=== PATIENT | female | born 1955 | race Two or more races ===

== ENCOUNTER 2016-12-27 22:37 | Inpatient (IN) | payer SELFPAY ==
[~2016-12-27] VITALS: Ht 152.4 cm; Wt 72.1 kg
[~2016-12-27 22:37] MED LIST: HYDR-2758 PO
[2016-12-27 23:13] LABS: BASO # 0.1 x10^3/uL (0.0-0.2); BASO % 1 % (0-3); EOS % 3 % (0-3); HEMATOCRIT 43.8 % (36.0-47.0); HEMOGLOBIN 14.9 g/dL (12.0-15.5); LYMPH # 3.2 x10^3/uL (1.0-4.8); LYMPH % 42 % (24-48); MEAN CORPUSCULAR HEMOGLOBIN 33 pg (25-35); MEAN CORPUSCULAR HGB CONC 34 g/dL (31-37); MEAN CORPUSCULAR VOLUME 97 fL (79-100); MONO % 8 % (0-9); NEUT % 46 % (31-73); PLATELET COUNT 193 x10^3/uL (140-400); RED BLOOD COUNT 4.54 x10^6/uL (3.50-5.40); WHITE BLOOD COUNT 7.7 x10^3/uL (4.0-11.0)
[2016-12-27 23:22] LABS: CALCIUM 8.8 mg/dL (8.5-10.1); CREATININE 0.7 mg/dL (0.6-1.0); GFR 84.8; POTASSIUM 3.9 mmol/L (3.5-5.1)
[2016-12-27 23:28] LABS: MAGNESIUM 2.2 mg/dL (1.8-2.4); TOTAL BILIRUBIN 0.9 mg/dL (0.2-1.0); TOTAL PROTEIN 8.1 g/dL (6.4-8.2)
[2016-12-27 23:38] LABS: CKMB MASS 1.6 ng/mL (0.0-3.6)
--- NOTE | 2016-12-28 00:08 | PHYS DOC ---
Past Medical History Past Medical History: GERD, High Cholesterol Additional Past Medical Histor: Daughter believes pt takes med for reflux Past Surgical History: Other Additional Past Surgical Histo: Arthroscopy L knee x 2 Alcohol Use: None Drug Use: None Adult General Chief Complaint Chief Complaint: Palpitations HPI HPI Patient is a 61 year old female who presents with sudden onset of palpitations , and chest pressure. At approx 10pm tonight while sitting pt had sudden onset of rapid heart beat with chest pressure. Daughter states pt was trembling from the fast heart beat. Pt states for past 2 days episodes of chest pressure prior to today. Pt states pain is substernal/L sided radiates to L arm and L neck. Associated with SOA and nausea. Chest pressure was 6/10/ Pt states rapid heart beat feeling gone now and the above episode may have lasted approx 7 min Pt speaks french and a little lithuanian. 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 Review of Systems Review of Systems Constitutional: Denies fever or chills [] Eyes: Denies change in visual acuity, redness, or eye pain [] HENT: Denies nasal congestion or sore throat [] Respiratory: Denies cough , yes---short of breath Cardiovascular: No additional information not addressed in HPI [] GI: Denies abdominal pain, nausea, vomiting, bloody stools or diarrhea [] : Denies dysuria or hematuria [] Musculoskeletal: Denies back pain or joint pain [] Integument: Denies rash or skin lesions [] Neurologic: Denies headache, focal weakness or sensory changes [] Current Medications Current Medications Current Medications Medications (Trade) Dose Ordered Sig/Karma Start Time Stop Time Status Last Admin Dose Admin Info (Do NOT chart on this entry -- for MONITORING) 1 each PRN DAILY PRN 12/28/16 00:15 12/28/16 16:20 DC Allergies Allergies Allergies Coded Allergies Type Severity Reaction Last Updated Verified No Known Drug Allergies 02/13/14 No Physical Exam Physical Exam Constitutional: Well developed, well nourished, no acute distress, non-toxic appearance. [] HENT: Normocephalic, atraumatic, bilateral external ears normal, oropharynx moist, no oral exudates, nose normal. [] Eyes: PERRL, EOMI, conjunctiva normal, no discharge. [] Neck: Normal range of motion, no tenderness, supple, no stridor. [] Cardiovascular:Heart rate regular rhythm, no murmur [] Lungs & Thorax: Bilateral breath sounds clear to auscultation [] Abdomen: Bowel sounds normal, soft, no tenderness, no masses, no pulsatile masses. [] Skin: Warm, dry, no erythema, no rash. [] Back: No tenderness, no CVA tenderness. [] Extremities: No tenderness, no cyanosis, no clubbing, ROM intact, no edema. [] Neurologic: Alert and oriented X 3, normal motor function, normal sensory function, no focal deficits noted. [] Psychologic: Affect normal, judgement normal, mood normal. [] Current Patient Data Vital Signs Vital Signs Date Time Temp Pulse Resp B/P (MAP) Pulse Ox O2 Delivery O2 Flow Rate FiO2 12/27/16 22:49 98.3 78 18 105/56 (72) 97 Room Air 98.3 Lab Values Laboratory Tests Test 12/27/16 22:50 White Blood Count 7.7 x10^3/uL (4.0-11.0) Red Blood Count 4.54 x10^6/uL (3.50-5.40) Hemoglobin 14.9 g/dL (12.0-15.5) Hematocrit 43.8 % (36.0-47.0) Mean Corpuscular Volume 97 fL (79-100) Mean Corpuscular Hemoglobin 33 pg (25-35) Mean Corpuscular Hemoglobin Concent 34 g/dL (31-37) Red Cell Distribution Width 13.0 % (11.5-14.5) Platelet Count 193 x10^3/uL (140-400) Neutrophils (%) (Auto) 46 % (31-73) Lymphocytes (%) (Auto) 42 % (24-48) Monocytes (%) (Auto) 8 % (0-9) Eosinophils (%) (Auto) 3 % (0-3) Basophils (%) (Auto) 1 % (0-3) Neutrophils # (Auto) 3.6 x10^3uL (1.8-7.7) Lymphocytes # (Auto) 3.2 x10^3/uL (1.0-4.8) Monocytes # (Auto) 0.6 x10^3/uL (0.0-1.1) Eosinophils # (Auto) 0.3 x10^3/uL (0.0-0.7) Basophils # (Auto) 0.1 x10^3/uL (0.0-0.2) D-Dimer (Nu) 1.30 ug/mlFEU (0.00-0.50) H Sodium Level 141 mmol/L (136-145) Potassium Level 3.9 mmol/L (3.5-5.1) Chloride Level 107 mmol/L (98-107) Carbon Dioxide Level 26 mmol/L (21-32) Anion Gap 8 (6-14) Blood Urea Nitrogen 15 mg/dL (7-20) Creatinine 0.7 mg/dL (0.6-1.0) Estimated GFR (Cockcroft-Gault) 84.8 BUN/Creatinine Ratio 21 (6-20) H Glucose Level 111 mg/dL (70-99) H Calcium Level 8.8 mg/dL (8.5-10.1) Magnesium Level 2.2 mg/dL (1.8-2.4) Total Bilirubin 0.9 mg/dL (0.2-1.0) Aspartate Amino Transferase (AST) 21 U/L (15-37) Alanine Aminotransferase (ALT) 38 U/L (14-59) Alkaline Phosphatase 114 U/L (46-116) Creatine Kinase 150 U/L (26-192) Creatine Kinase MB (Mass) 1.6 ng/mL (0.0-3.6) Creatine Kinase MB Relative Index 1.1 % (0-4) Troponin I Quantitative < 0.017 ng/mL (0.000-0.055) EX-Jwn-[id number]-Type Natriuretic Peptide 54 pg/mL (0-124) Total Protein 8.1 g/dL (6.4-8.2) Albumin 4.0 g/dL (3.4-5.0) Albumin/Globulin Ratio 1.0 (1.0-1.7) Laboratory Tests 12/27/16 22:50 Laboratory Tests 12/27/16 22:50 EKG EKG EKG-- interpreted by ER physician-- Sinus rhythm no STEMI, nonspecific ST T wave changes 2250[] Radiology/Procedures Radiology/Procedures PATIENT: BRIAN SORIA ACCOUNT: [id number] : 1955 LOCATION: [address] [place] [address] AGE: 61 SEX: F EXAM STATUS: ADM IN ORD. PHYSICIAN: REE JIMENEZ MD REASON: chest pain PROCEDURE: CT ANGIOGRAPHY CHEST INDICATION: CHEST PAIN, PALPITATIONS AND ELEVATED D DIMER, [id number], NO PRIORS COMPARISON: None. TECHNIQUE: Axial CT images obtained through the chest. Intravenous contrast utilized. Angiogram 3D images processed per protocol. One or more of the following individualized dose reduction techniques were utilized for this examination: 1. Automated exposure control; 2. Adjustment of the mA and/or kV according to patient size; 3. Use of iterative reconstruction technique. FINDINGS: Mild linear opacities lower lungs. No pneumothorax. Sub-4 mm right upper lung nodule. 5 mm nodule right lung base. Mild groundglass nodular opacity in the right middle lobe. Mildly enlarged right hilar lymph node measuring up to 15 mm short axis. Scattered small lymph nodes in mediastinum. Mild calcific atherosclerosis. The ascending thoracic aorta is obscured by motion but no definite aneurysm. Degenerative changes spine. Enlarged left hilar lymph node. No central pulmonary embolus. Limited peripherally secondary to motion. IMPRESSION: 1. No central pulmonary embolus. 2. There are some enlarged hilar lymph nodes. Could be reactive in nature but may be helpful to obtain a follow-up CT in a few months to ensure no growth to exclude neoplastic causes. 3. In addition there is a couple small pulmonary nodules which can be reevaluated at that time as well. 4. Small region of ground glass nodular opacities within the right middle lobe. Could be secondary to atelectasis but infectious or inflammatory etiology can also have this appearance. This is a very mild finding. Electronically signed by: Pop Mart MD (12/28/2016 12:52 AM) DICTATED and SIGNED BY: POP MART MD DATE: 12/28/16 0020 CC: REE JIMENEZ MD; NO PCP; ELIAZAR FERNÁNDEZ MD ~ [] Impressions: Palpitations Chest Pain Course & Med Decision Making Course & Med Decision Making Pertinent Labs and Imaging studies reviewed. (See chart for details) [] Dragon Disclaimer Dragon Disclaimer This electronic medical record was generated, in whole or in part, using a voice recognition dictation system. Departure Departure Referrals: NO PCP (PCP) REE JIMENEZ MD Dec 28, 2016 00:08
[2016-12-28] MEDS ORDERED: CONTRAST GIVEN MC PRN (00:15)
[2016-12-28] MEDS ORDERED: IOHEXOL 300 MG/ML 75 ML VIAL IV ONE (00:30)
[2016-12-28] MEDS ORDERED: ONDANSETRON PF 4 MG/2 ML VIAL. IV PRN (00:45)
--- NOTE | 2016-12-28 00:55 | RAD ---
INDICATION: CHEST PAIN, PALPITATIONS AND ELEVATED D DIMER, [id number] 75ML, NO PRIORS COMPARISON: None. TECHNIQUE: Axial CT images obtained through the chest. Intravenous contrast utilized. Angiogram 3D images processed per protocol. One or more of the following individualized dose reduction techniques were utilized for this examination: 1. Automated exposure control; 2. Adjustment of the mA and/or kV according to patient size; 3. Use of iterative reconstruction technique. FINDINGS: Mild linear opacities lower lungs. No pneumothorax. Sub-4 mm right upper lung nodule. 5 mm nodule right lung base. Mild groundglass nodular opacity in the right middle lobe. Mildly enlarged right hilar lymph node measuring up to 15 mm short axis. Scattered small lymph nodes in mediastinum. Mild calcific atherosclerosis. The ascending thoracic aorta is obscured by motion but no definite aneurysm. Degenerative changes spine. Enlarged left hilar lymph node. No central pulmonary embolus. Limited peripherally secondary to motion. IMPRESSION: 1. No central pulmonary embolus. 2. There are some enlarged hilar lymph nodes. Could be reactive in nature but may be helpful to obtain a follow-up CT in a few months to ensure no growth to exclude neoplastic causes. 3. In addition there is a couple small pulmonary nodules which can be reevaluated at that time as well. 4. Small region of ground glass nodular opacities within the right middle lobe. Could be secondary to atelectasis but infectious or inflammatory etiology can also have this appearance. This is a very mild finding. Electronically signed by: Chucky Padilla MD (12/28/2016 12:52 AM)
[2016-12-28] MEDS ORDERED: ASPIRIN CHEWABLE 81 MG TABLET. PO ONE (01:15)
[2016-12-28 01:30] VITALS: BP 164/67
[2016-12-28] MEDS ORDERED: OMEG-57 PO (02:35)
[2016-12-28] MEDS ORDERED: ATOR20TA PO (02:35)
[2016-12-28] MEDS ORDERED: RANI150C PO (02:35)
--- NOTE | 2016-12-28 04:32 | ACF ---
Admission Forms Criteria CARDIOLOGY GRG Clinical Indications for Admission to Inpatient Care ( Place 'X' for any and all applicable criteria): Hospital admission is needed for appropriate care of the patient because of ANY ONE of the following (1): [ ] I. Hemodynamic instability as indicated by ALL of the following (1)(2)(3) (4)(5) [ ]a) Vital signs or other findings not as expected for chronic patient condition or baseline [ ]b) Instability indicated by ANY ONE of the following: [ ]i) Hypotension [ ]ii) Symptomatic Tachycardia unresponsive to treatment ( e.g., analgesia, fluids, sedation as indicated) [ ]iii) Inadequate perfusion indicated by ANY ONE of the following: [ ] 1) Lactic acidosis (> 2 mmol/L) [ ] 2) New abnormal capillary refill (> 3 seconds) [ ] 3) Reduced urine output [ ] 4) New altered mental status [ ]iv) Orthostatic vital sign changes unresponsive to treatment (e.g., fluids) [ ]v) IV inotropic or vasopressor medication required to maintain adequate blood pressure or perfusion [ ] II. Severe heart failure as indicated by ANY ONE of the following(17)(18) [ ]a) Respiratory distress [ ]b) Hypotension [ ]c) Anasarca (refractory to outpatient therapy) [ ]d) Cardiac arrhythmias of immediate concern [ ]e) Myocardial ischemia [ ] III. Cardiac arrhythmias or findings of immediate concern indicated by ANY ONE of the following (19)(20): [ ] a) Heart rhythms that are inherently dangerous or unstable indicated by ANY ONE of the following (21)(22)(23): [ ] i) Resuscitated ventricular fibrillation or cardiac arrest [ ] ii) Ventricular escape rhythm [ ] iii) Sustained ventricular tachycardia (30 seconds or more of ventricular rhythm at greater than 100 beats per minute) [ ] iv) Nonsustained ventricular tachycardia and ANY ONE of the following: [ ] 1) Suspected cardiac ischemia as cause or consequence of ventricular tachycardia [ ] 2) In setting of acute myocarditis [ ] b) Unstable cardiac conduction defects indicated by ANY ONE of the following(23)(24)(25) [ ] i) Type II second-degree atrioventricular block [ ]ii) Third-degree atrioventricular block [ ]iii) New-onset left bundle branch block with suspected myocardial ischemia [ ]c) Any heart rhythm and ANY ONE of the following (21)(22)(26)(27) (28) [ ] i) Continuous long-term ECG monitoring needed (e.g., initiation of drug requiring monitoring for more than 24 hours) [ ] ii) Patient has automatic implanted cardioverter defibrillator that is repeatedly firing, malfunctioning, or in need of immediate adjustment of settings beyond the scope of ambulatory or observation care [ ]d) Heart rhythms of concern due to ANY ONE of the following: [ ] i) Hypotension [ ] ii) Respiratory distress [ ] iii) Association with other significant symptoms (e.g., bradycardia with syncope or ongoing dizziness, supraventricular tachycardia with chest pain (14)(15)(17) [ ] IV. Monitoring for cardiac contusion beyond the scope of observation care needed [A](30)(31)(32) [ ] V. Surgical or device complication (e.g., valve replacement complication , pacemaker dysfunction) (35)(41)(44)(45)(46) [ ] . Inpatient palliative care needed. [B](49) Also use Inpatient Palliative Care Criteria [ ] VII. Nonbacterial thrombotic (marantic) endocarditis (36)(43)(47)(48) [X] VIII. Cardiology condition, symptom, or finding for which emergency and observation care has failed or are not considered appropriate. [ ] IX. Acute valvular disease requiring inpatient as indicated by ANY ONE of the following (41) [ ]a) Acute valvular regurgitation (42) [ ]b) Noninfectious valvulitis (43) [ ]c) Obstructive valve thrombosis [ ]d) Paravalvular leak [ ]e) Other significant valvular disorder remaining after emergency or observation level of care (as appropriate) [ ]X. Pericardial disease requiring inpatient treatment as indicated by ANY ONE of the following (33)(34)(35)(36)(37) [ ]a) Suspected tamponade (38)(39)(40) [ ]b) Hemopericardium [ ]c) Other significant pericardial disorder remaining after emergency or observation level of care (as appropriate) [ ] XI. Cardiac ischemia beyond scope of emergency and observation care. [ ] XII. Hypertension requiring inpatient treatment as indicated by ANY ONE of the following (6)(7)(8) [ ]a) SBP greater than 220 mm Hg or DBP greater than 120 mmHg despite treatment [ ]b) SBP greater than 140 mm Hg or DBP greater than 100 mm Hg with evidence of acute end organ damage as indicated by ANY ONE of the following [ ] i) Encephalopathy [ ] ii) Acute renal failure as indicated by new onset of ANY ONE of the following (9)(10)(11)(12)(13) [ ]1) 3-fold rise in serum creatinine from baseline [ ]2) Serum creatinine greater than 4 mg/dL ( 354 micromoles/L) with acute rise greater than 0.5 mg/dL (44.2 micromoles/L) [ ]3) Reduction of more than 75% in estimated glomerular filtration rate from baseline [ ]4) Estimated glomerular filtration rate less than 35 mL/min/1.73m2 (0.59 mL/sec/1.73m2) in child up to 18 years of age [ ]5) Cessation of urine output indicated by ALL of the following [ ]A. Adequate volume status [ ]B. Inadequate urine output as indicated by ANY ONE of the following [ ]a. Urine output less than 0.3 mL/kg/hr for 24 hours [ ]b. Anuria (urine output less than 0.1 mL/kg/hr) for 12 hours [ ] iii) Aortic dissection [ ] iv) Myocardial Ischemia [ ] v) Left ventricular heart failure [ ]vi) Retinal Hemorrhage [ ]vii) Other significant finding [ ]c) Hypertension in child requiring inpatient treatment as indicated by ALL of the following(14)(15)(16) [ ] i) Outpatient treatment not effective, not available, or not appropriate [ ]ii) SBP or DBP greater than 95th percentile for age [ ]iii) Evidence of acute end organ damage as indicated by ANY ONE of the following [ ]1) Altered mental status [ ]2) Acute renal failure as indicated by new onset of ANY ONE of the following(9)(10)(11)(12)(13) [ ]A. 3-fold rise in serum creatinine from baseline [ ]B. Serum creatinine greater than 4 mg/dL (354 micromoles/L) with acute rise greater than 0.5 mg/dL (44.2 micromoles/L) [ ]C. Reduction of more than 75% in estimated glomerular filtration rate from baseline [ ]D. Estimated glomerular filtration rate less than 35 mL/min/1.73m2 (0.59 mL/sec/1.73m2) in child up to 18 years of age [ ]E. Cessation of urine output indicated by ALL of the following [ ]a. Adequate volume status [ ]b. Inadequate urine output as indicated by ANY ONE of the following [ ]i) Urine output less than 0.3 mL/kg/hr for 24 hours [ ]ii) Anuria ( urine output less than 0.1 mL/kg/hr) for 12 hours [ ]3) Severe headache [ ]4) Visual disturbance [ ]5) Retinal hemorrhage [ ]6) Other significant finding [ ]XIII. Complications of transplanted heart indicated by ANY ONE of the following(61): [ ]a) Acute graft rejection requiring inpatient management (eg, intravenous immunosuppression)(62)(63) [ ]b) Acute graft heart failure indicated by ANY ONE of the following(64): [ ]i) Hemodynamic instability [ ]ii) Cardiac arrhythmias of immediate concern [ ]iii) Pulmonary edema that is very severe (eg, mechanical ventilation needed, imminent or likely, need for 100% oxygen to keep oxygen saturation above 90%) [ ]iv) Pulmonary edema that is persistent as indicated by ALL of the following: [ ]1) New need for oxygen therapy to keep oxygen saturation above 90% (or increased FiO2 need from baseline) [ ]2) Has not improved sufficiently with emergency department or observation care IV diuretics or other heart failure treatments[E] [ ]v) Altered mental status that is severe or persistent [ ]vi) Increased creatinine (new on laboratory test) with reduction of more than 50% in estimated glomerular filtration rate from baseline [ ]vii) Progressively (ongoing) rising creatinine (known from past laboratory test) with reduction of more than 25% in estimated glomerular filtration rate from baseline [ ]viii) Acute renal failure [ ]ix) Acute peripheral ischemia (eg, examination shows pulseless, cool, mottled, or cyanotic extremity) [ ]x) Pulmonary artery catheter monitoring needed [ ]xi) Other sign or symptom of heart failure requiring inpatient treatment (ie, too severe or not responsive to outpatient and observation care treatment) [ ]c) Infection requiring inpatient management (eg, Hemodynamic instability, need for intravenous antimicrobial treatment)(66)(67)(68)(69)(70) [ ]d) Cardiac allograft vasculopathy requiring inpatient management ( eg evidence of cardiac ischemia)(71) [ ]e) Other complication of transplanted heart (eg, stroke, severe pulmonary hypertension, severe valvular dysfunction) requiring inpatient management(72) The original [facility] content created by [facility] has been revised. The portions of the content which have been revised are identified through the use of italic text or in bold, and [facility] has neither reviewed nor approved the modified material. All other unmodified content is copyright [facility]. Please see references footnoted in the original [facility] edition 2016 Admission Criteria Met?: Yes MARLENE DERAS Dec 28, 2016 04:32
--- NOTE | 2016-12-28 06:28 | EKG ---
[facility] [address] [place] [address] Test Date: 2016-12-27 Test Time: 22:50:35 Pat Name: BRIAN SORIA Department: Room: 246 Gender: F President Celebrity Acquistion: : 1955 Requested By: ELIAZAR FERNÁNDEZ Order Number: [id number] Reading MD: Measurements Intervals [place] Rate: 79 P: 44 RI: 132 QRS: 9 QRSD: 78 T: 42 QT: 386 QTc: 444 Interpretive Statements SINUS RHYTHM QRS(T) CONTOUR ABNORMALITY CONSIDER ANTEROSEPTAL MYOCARDIAL DAMAGE RI6.01 Unconfirmed report No previous ECG available for comparison
[2016-12-28 06:48] LABS: CHOLESTEROL/HDL RATIO 2.9
[2016-12-28 07:40] VITALS: BP 108/53
--- NOTE | 2016-12-28 09:29 | PDOC2 ---
CARDIAC CONSULT DATE OF CONSULT Date of Consult DATE: 12/28/16 TIME: 09:25 REASON FOR CONSULT Reason for Consult: Dr. Maldonado REFERRING PHYSICIAN Referring Physician: Chest Pain SOURCE Source: Chart review, Patient HISTORY OF PRESENT ILLNESS HISTORY OF PRESENT ILLNESS This is a 61 yo female who presented with complaints of chest pain. Patient reports pain began Monday morning. Located in her left chest. Describes as dull sensation. Refugio like this was a muscle pain. Pain has been constant since Monday. Worsened with deep breathing, by pressing on the left chest, and with certain movements. No relieving factors. Last night, experienced palpitations. Refugio like her heart was going to beat out of her chest. Daughter thought this could have been an anxiety attack. Associated with dizziness and diaphoresis. No SOA or nausea/vomiting. No recent illness/fevers. Symptoms resolved without intervention. No prior h/o cardiac disease or previous cardiac workup. PAST MEDICAL HISTORY Cardiovascular: Hyperlipidemia Pulmonary: No pertinent hx GI: GERD Heme/Onc: No pertinent hx Hepatobiliary: Other ("fatty liver") Psych: Anxiety Infectious disease: No pertinent hx ENT: No pertinent hx Renal/: No pertinent hx Endocrine: No pertinent hx Dermatology: No pertinent hx PAST SURGICAL HISTORY Past Surgical History: No pertinent history FAMILY HISTORY Family History: Other (noncontributory ) SOCIAL HISTORY Smoke: No ALCOHOL: none Drugs: None Lives: with Family CURRENT MEDICATIONS CURRENT MEDICATIONS Current Medications Medications (Trade) Dose Ordered Sig/Karma Route PRN Reason Start Time Stop Time Status Last Admin Dose Admin Iohexol (Omnipaque 300 Mg/ml) 75 ml 1X ONCE IV 12/28/16 00:30 12/28/16 00:31 DC 12/28/16 00:11 Aspirin (Children'S Aspirin) 324 mg 1X ONCE PO 12/28/16 01:15 12/28/16 01:16 DC 12/28/16 01:07 ALLERGIES ALLERGIES: Coded Allergies: No Known Drug Allergies (Unverified , 02/13/14) ROS Review of System 14 point ROS conducted with pertinent positives noted above in HPI. PHYSICAL EXAM General: Alert, Oriented X3, Cooperative HEENT: Atraumatic, Mucous membr. moist/pink Lungs: Clear to auscultation, Normal air movement Heart: Regular rate, Normal S1, Normal S2, No murmurs, Other (left chest tenderness upon palpation) Abdomen: Soft Extremities: No edema, Normal pulses Skin: No breakdown, No significant lesion Neuro: Normal speech, Sensation intact Psych/Mental Status: Mental status NL, Mood NL MUSCULOSKELETAL: Full range of motion without pain VITALS VITALS Vital Signs Date Time Temp Pulse Resp B/P (MAP) Pulse Ox O2 Delivery O2 Flow Rate FiO2 12/28/16 07:40 Room Air 12/28/16 07:40 97.7 64 18 108/53 (71) 95 97.7 LABS Lab: Laboratory Tests Test 12/27/16 22:50 12/28/16 06:00 White Blood Count 7.7 x10^3/uL (4.0-11.0) Red Blood Count 4.54 x10^6/uL (3.50-5.40) Hemoglobin 14.9 g/dL (12.0-15.5) Hematocrit 43.8 % (36.0-47.0) Mean Corpuscular Volume 97 fL (79-100) Mean Corpuscular Hemoglobin 33 pg (25-35) Mean Corpuscular Hemoglobin Concent 34 g/dL (31-37) Red Cell Distribution Width 13.0 % (11.5-14.5) Platelet Count 193 x10^3/uL (140-400) Neutrophils (%) (Auto) 46 % (31-73) Lymphocytes (%) (Auto) 42 % (24-48) Monocytes (%) (Auto) 8 % (0-9) Eosinophils (%) (Auto) 3 % (0-3) Basophils (%) (Auto) 1 % (0-3) Neutrophils # (Auto) 3.6 x10^3uL (1.8-7.7) Lymphocytes # (Auto) 3.2 x10^3/uL (1.0-4.8) Monocytes # (Auto) 0.6 x10^3/uL (0.0-1.1) Eosinophils # (Auto) 0.3 x10^3/uL (0.0-0.7) Basophils # (Auto) 0.1 x10^3/uL (0.0-0.2) D-Dimer (Nu) 1.30 ug/mlFEU (0.00-0.50) Sodium Level 141 mmol/L (136-145) Potassium Level 3.9 mmol/L (3.5-5.1) Chloride Level 107 mmol/L (98-107) Carbon Dioxide Level 26 mmol/L (21-32) Anion Gap 8 (6-14) Blood Urea Nitrogen 15 mg/dL (7-20) Creatinine 0.7 mg/dL (0.6-1.0) Estimated GFR (Cockcroft-Gault) 84.8 BUN/Creatinine Ratio 21 (6-20) Glucose Level 111 mg/dL (70-99) Calcium Level 8.8 mg/dL (8.5-10.1) Magnesium Level 2.2 mg/dL (1.8-2.4) Total Bilirubin 0.9 mg/dL (0.2-1.0) Aspartate Amino Transf (AST/SGOT) 21 U/L (15-37) Alanine Aminotransferase (ALT/SGPT) 38 U/L (14-59) Alkaline Phosphatase 114 U/L (46-116) Creatine Kinase 150 U/L (26-192) Creatine Kinase MB (Mass) 1.6 ng/mL (0.0-3.6) Creatine Kinase MB Relative Index 1.1 % (0-4) Troponin I Quantitative < 0.017 ng/mL (0.000-0.055) < 0.017 ng/mL (0.000-0.055) WU-Lae-I-Type Natriuretic Peptide 54 pg/mL (0-124) Total Protein 8.1 g/dL (6.4-8.2) Albumin 4.0 g/dL (3.4-5.0) Albumin/Globulin Ratio 1.0 (1.0-1.7) Triglycerides Level 86 mg/dL (0-150) Cholesterol Level 129 mg/dL (0-200) LDL Cholesterol, Calculated 67 mg/dL (0-100) VLDL Cholesterol, Calculated 17 mg/dL (0-40) Non-HDL Cholesterol Calculated 84 mg/dL (0-129) HDL Cholesterol 45 mg/dL (40-60) Cholesterol/HDL Ratio 2.9 ASSESSMENT/PLAN ASSESSMENT/PLAN 1. Chest pain, atypical. AMI ruled out. EKG with T-wave inversion of V1 2. Hyperlipidemia; lipids on goal 3. Palpitations; no acute events on telemetry 4. Anxiety; as per IM 5. GERD; on PPI Recommendations Check TSH. If having recurrent palpitations, could consider an event monitor on an outpatient basis. Pain likely MSK in origin as it is reproducible with palpation to left chest, but given risk factors and mild EKG changes, will proceed with MPI to r/o ischemia. If normal, may discharge from a CV standpoint. Problems: PRITI DIETRICH APRN Dec 28, 2016 09:29
--- NOTE | 2016-12-28 09:40 | PDOC ---
PROGRESS NOTES Vitals Vitals Vital Signs Date Time Temp Pulse Resp B/P (MAP) Pulse Ox O2 Delivery O2 Flow Rate FiO2 12/28/16 07:40 Room Air 12/28/16 07:40 97.7 64 18 108/53 (71) 95 97.7 Physical Exam General: Alert, Oriented X3 Heart: Normal S1, Normal S2 Lungs: Clear Abdomen: Normal bowel sounds Extremities: No clubbing Skin: No rashes Labs LABS Laboratory Tests Test 12/27/16 22:50 12/28/16 06:00 White Blood Count 7.7 x10^3/uL (4.0-11.0) Red Blood Count 4.54 x10^6/uL (3.50-5.40) Hemoglobin 14.9 g/dL (12.0-15.5) Hematocrit 43.8 % (36.0-47.0) Mean Corpuscular Volume 97 fL (79-100) Mean Corpuscular Hemoglobin 33 pg (25-35) Mean Corpuscular Hemoglobin Concent 34 g/dL (31-37) Red Cell Distribution Width 13.0 % (11.5-14.5) Platelet Count 193 x10^3/uL (140-400) Neutrophils (%) (Auto) 46 % (31-73) Lymphocytes (%) (Auto) 42 % (24-48) Monocytes (%) (Auto) 8 % (0-9) Eosinophils (%) (Auto) 3 % (0-3) Basophils (%) (Auto) 1 % (0-3) Neutrophils # (Auto) 3.6 x10^3uL (1.8-7.7) Lymphocytes # (Auto) 3.2 x10^3/uL (1.0-4.8) Monocytes # (Auto) 0.6 x10^3/uL (0.0-1.1) Eosinophils # (Auto) 0.3 x10^3/uL (0.0-0.7) Basophils # (Auto) 0.1 x10^3/uL (0.0-0.2) D-Dimer (Nu) 1.30 ug/mlFEU (0.00-0.50) Sodium Level 141 mmol/L (136-145) Potassium Level 3.9 mmol/L (3.5-5.1) Chloride Level 107 mmol/L (98-107) Carbon Dioxide Level 26 mmol/L (21-32) Anion Gap 8 (6-14) Blood Urea Nitrogen 15 mg/dL (7-20) Creatinine 0.7 mg/dL (0.6-1.0) Estimated GFR (Cockcroft-Gault) 84.8 BUN/Creatinine Ratio 21 (6-20) Glucose Level 111 mg/dL (70-99) Calcium Level 8.8 mg/dL (8.5-10.1) Magnesium Level 2.2 mg/dL (1.8-2.4) Total Bilirubin 0.9 mg/dL (0.2-1.0) Aspartate Amino Transf (AST/SGOT) 21 U/L (15-37) Alanine Aminotransferase (ALT/SGPT) 38 U/L (14-59) Alkaline Phosphatase 114 U/L (46-116) Creatine Kinase 150 U/L (26-192) Creatine Kinase MB (Mass) 1.6 ng/mL (0.0-3.6) Creatine Kinase MB Relative Index 1.1 % (0-4) Troponin I Quantitative < 0.017 ng/mL (0.000-0.055) < 0.017 ng/mL (0.000-0.055) XF-Zgn-W-Type Natriuretic Peptide 54 pg/mL (0-124) Total Protein 8.1 g/dL (6.4-8.2) Albumin 4.0 g/dL (3.4-5.0) Albumin/Globulin Ratio 1.0 (1.0-1.7) Triglycerides Level 86 mg/dL (0-150) Cholesterol Level 129 mg/dL (0-200) LDL Cholesterol, Calculated 67 mg/dL (0-100) VLDL Cholesterol, Calculated 17 mg/dL (0-40) Non-HDL Cholesterol Calculated 84 mg/dL (0-129) HDL Cholesterol 45 mg/dL (40-60) Cholesterol/HDL Ratio 2.9 Assessment and Plan Assessmemt and Plan Problems Medical Problems: (1) Chest pain Status: Acute (2) Palpitations Status: Acute Problems: Comment Review of Relevant I have reviewed the following items darshan (where applicable) has been applied. Labs Laboratory Tests Test 12/27/16 22:50 12/28/16 06:00 White Blood Count 7.7 x10^3/uL (4.0-11.0) Red Blood Count 4.54 x10^6/uL (3.50-5.40) Hemoglobin 14.9 g/dL (12.0-15.5) Hematocrit 43.8 % (36.0-47.0) Mean Corpuscular Volume 97 fL (79-100) Mean Corpuscular Hemoglobin 33 pg (25-35) Mean Corpuscular Hemoglobin Concent 34 g/dL (31-37) Red Cell Distribution Width 13.0 % (11.5-14.5) Platelet Count 193 x10^3/uL (140-400) Neutrophils (%) (Auto) 46 % (31-73) Lymphocytes (%) (Auto) 42 % (24-48) Monocytes (%) (Auto) 8 % (0-9) Eosinophils (%) (Auto) 3 % (0-3) Basophils (%) (Auto) 1 % (0-3) Neutrophils # (Auto) 3.6 x10^3uL (1.8-7.7) Lymphocytes # (Auto) 3.2 x10^3/uL (1.0-4.8) Monocytes # (Auto) 0.6 x10^3/uL (0.0-1.1) Eosinophils # (Auto) 0.3 x10^3/uL (0.0-0.7) Basophils # (Auto) 0.1 x10^3/uL (0.0-0.2) D-Dimer (Nu) 1.30 ug/mlFEU (0.00-0.50) Sodium Level 141 mmol/L (136-145) Potassium Level 3.9 mmol/L (3.5-5.1) Chloride Level 107 mmol/L (98-107) Carbon Dioxide Level 26 mmol/L (21-32) Anion Gap 8 (6-14) Blood Urea Nitrogen 15 mg/dL (7-20) Creatinine 0.7 mg/dL (0.6-1.0) Estimated GFR (Cockcroft-Gault) 84.8 BUN/Creatinine Ratio 21 (6-20) Glucose Level 111 mg/dL (70-99) Calcium Level 8.8 mg/dL (8.5-10.1) Magnesium Level 2.2 mg/dL (1.8-2.4) Total Bilirubin 0.9 mg/dL (0.2-1.0) Aspartate Amino Transf (AST/SGOT) 21 U/L (15-37) Alanine Aminotransferase (ALT/SGPT) 38 U/L (14-59) Alkaline Phosphatase 114 U/L (46-116) Creatine Kinase 150 U/L (26-192) Creatine Kinase MB (Mass) 1.6 ng/mL (0.0-3.6) Creatine Kinase MB Relative Index 1.1 % (0-4) Troponin I Quantitative < 0.017 ng/mL (0.000-0.055) < 0.017 ng/mL (0.000-0.055) CX-Jys-H-Type Natriuretic Peptide 54 pg/mL (0-124) Total Protein 8.1 g/dL (6.4-8.2) Albumin 4.0 g/dL (3.4-5.0) Albumin/Globulin Ratio 1.0 (1.0-1.7) Triglycerides Level 86 mg/dL (0-150) Cholesterol Level 129 mg/dL (0-200) LDL Cholesterol, Calculated 67 mg/dL (0-100) VLDL Cholesterol, Calculated 17 mg/dL (0-40) Non-HDL Cholesterol Calculated 84 mg/dL (0-129) HDL Cholesterol 45 mg/dL (40-60) Cholesterol/HDL Ratio 2.9 Laboratory Tests Test 12/27/16 22:50 12/28/16 06:00 White Blood Count 7.7 x10^3/uL (4.0-11.0) Red Blood Count 4.54 x10^6/uL (3.50-5.40) Hemoglobin 14.9 g/dL (12.0-15.5) Hematocrit 43.8 % (36.0-47.0) Mean Corpuscular Volume 97 fL (79-100) Mean Corpuscular Hemoglobin 33 pg (25-35) Mean Corpuscular Hemoglobin Concent 34 g/dL (31-37) Red Cell Distribution Width 13.0 % (11.5-14.5) Platelet Count 193 x10^3/uL (140-400) Neutrophils (%) (Auto) 46 % (31-73) Lymphocytes (%) (Auto) 42 % (24-48) Monocytes (%) (Auto) 8 % (0-9) Eosinophils (%) (Auto) 3 % (0-3) Basophils (%) (Auto) 1 % (0-3) Neutrophils # (Auto) 3.6 x10^3uL (1.8-7.7) Lymphocytes # (Auto) 3.2 x10^3/uL (1.0-4.8) Monocytes # (Auto) 0.6 x10^3/uL (0.0-1.1) Eosinophils # (Auto) 0.3 x10^3/uL (0.0-0.7) Basophils # (Auto) 0.1 x10^3/uL (0.0-0.2) D-Dimer (Nu) 1.30 ug/mlFEU (0.00-0.50) Sodium Level 141 mmol/L (136-145) Potassium Level 3.9 mmol/L (3.5-5.1) Chloride Level 107 mmol/L (98-107) Carbon Dioxide Level 26 mmol/L (21-32) Anion Gap 8 (6-14) Blood Urea Nitrogen 15 mg/dL (7-20) Creatinine 0.7 mg/dL (0.6-1.0) Estimated GFR (Cockcroft-Gault) 84.8 BUN/Creatinine Ratio 21 (6-20) Glucose Level 111 mg/dL (70-99) Calcium Level 8.8 mg/dL (8.5-10.1) Magnesium Level 2.2 mg/dL (1.8-2.4) Total Bilirubin 0.9 mg/dL (0.2-1.0) Aspartate Amino Transf (AST/SGOT) 21 U/L (15-37) Alanine Aminotransferase (ALT/SGPT) 38 U/L (14-59) Alkaline Phosphatase 114 U/L (46-116) Creatine Kinase 150 U/L (26-192) Creatine Kinase MB (Mass) 1.6 ng/mL (0.0-3.6) Creatine Kinase MB Relative Index 1.1 % (0-4) Troponin I Quantitative < 0.017 ng/mL (0.000-0.055) < 0.017 ng/mL (0.000-0.055) XZ-Tuw-D-Type Natriuretic Peptide 54 pg/mL (0-124) Total Protein 8.1 g/dL (6.4-8.2) Albumin 4.0 g/dL (3.4-5.0) Albumin/Globulin Ratio 1.0 (1.0-1.7) Triglycerides Level 86 mg/dL (0-150) Cholesterol Level 129 mg/dL (0-200) LDL Cholesterol, Calculated 67 mg/dL (0-100) VLDL Cholesterol, Calculated 17 mg/dL (0-40) Non-HDL Cholesterol Calculated 84 mg/dL (0-129) HDL Cholesterol 45 mg/dL (40-60) Cholesterol/HDL Ratio 2.9 Medications Current Medications Iohexol (Omnipaque 300 Mg/ml) 75 ml 1X ONCE IV Last administered on 12/28/16 00:11; Start 12/28/16 at 00:30; Stop 12/28/16 at 00:31; Status DC Info (Do NOT chart on this entry -- for MONITORING) 1 each PRN DAILY PRN MC SEE COMMENTS; Start 12/28/16 at 00:15; Stop 12/30/16 at 00:14 Ondansetron HCl (Zofran) 4 mg PRN Q8HRS PRN IV NAUSEA/VOMITING; Start 12/28/16 at 00:45; Stop 12/29/16 at 00:44 Aspirin (Children'S Aspirin) 324 mg 1X ONCE PO Last administered on 12/28/16 01:07; Start 12/28/16 at 01:15; Stop 12/28/16 at 01:16; Status DC Active Scripts Active Reported Fish Oil + D3 Softgel ([place]-3S/Dha/Epa/Fish Oil/D3) 1 Each Capsule 1 Each PO DAILY Lipitor (Atorvastatin Calcium) 20 Mg Tablet 20 Mg PO HS Ranitidine Hcl 150 Mg Capsule 150 Mg PO PRN BID Hydrocodone-Apap 5-325 (Hydrocodone Bit/Acetaminophen) 1 Each Tablet 1-2 Tab PO PRN Q4HRS PRN Vitals/I & O Vital Sign - Last 24 Hours 12/27/16 12/28/16 12/28/16 12/28/16 22:49 00:30 01:30 01:30 Temp 98.3 98.3 98.3 98.3 Pulse 78 68 69 Resp 18 18 18 B/P (MAP) 105/56 (72) 125/65 (85) 164/67 (99) Pulse Ox 97 97 98 O2 Delivery Room Air Room Air Room Air 612/28/16 12/28/16 03:44 07:40 07:40 Temp 97.7 97.7 Pulse 64 Resp 18 B/P (MAP) 108/53 (71) Pulse Ox 95 O2 Delivery Room Air Room Air Intake and Output 12/27/16 12/27/16 12/28/16 15:00 23:00 07:00 Output Total 650 ml Balance -650 ml BREN WETZEL MD Dec 28, 2016 09:40
[2016-12-28] MEDS ORDERED: PANTOPRAZOLE 40 MG TABLET.DR. PO SCH (11:30)
[2016-12-28] MEDS ORDERED: ALPRAZolam 0.25 MG TABLET PO ONE (11:30)
[2016-12-28 11:40] VITALS: BP 120/56
[2016-12-28] MEDS ORDERED: REGADENOSON 0.4 MG/5 ML DISP.SYRIN. IV ONE ×2 (12:00)
--- NOTE | 2016-12-28 13:33 | HP ---
ADMIT DATE: 12/28/2016 CHIEF COMPLAINT: Palpitations, chest pain. HISTORY OF PRESENT ILLNESS: This 61-year-old Setswana speaking female patient presented to the ER with complaints of chest pain, chest tightness and palpitations. Yesterday, while the patient was sitting at home, she felt intense palpitations (boom, boom, boom) for 15-20 minutes with numbness in her upper extremities and also diaphoresis and sweating. The patient had some chest pain in the past like on Monday, located in the left side of the chest with a dull sensation. Denies any syncope or leg swelling or shortness of breath. Her symptoms resolved after she came here. Denies any prior coronary artery disease. Only prior problem was hyperlipidemia. PAST MEDICAL HISTORY: GERD, hyperlipidemia. PAST SURGICAL HISTORY: None. FAMILY HISTORY: No coronary artery disease. SOCIAL HISTORY: No smoking, no alcohol, no drug abuse. ALLERGIES: NKDA. REVIEW OF SYSTEMS: CONSTITUTIONAL: No fever or chills. EYES: No recent vision changes. SKIN: No rash or itching. CARDIOVASCULAR: Palpitations. RESPIRATORY: No shortness of breath, cough. GASTROINTESTINAL: No nausea, vomiting, diarrhea or abdominal pain. NEUROLOGICAL: No headache, paralysis. ENDOCRINOLOGIC: No cold or heat intolerance. GENITOURINARY: No burning with urination, no urgency. MUSCULOSKELETAL: No back pain or joint pain. LYMPHATICS: No enlarged nodes. PSYCHIATRIC: No anxiety or depression. PHYSICAL EXAMINATION: GENERAL: No apparent distress. HEENT: Head normocephalic, atraumatic. NECK: Supple. LUNGS: Clear to auscultation. HEART: Regular rate and rhythm; S1, S2 present; pulses intact. ABDOMEN: Soft and positive bowel sounds. EXTREMITIES: No cyanosis or edema. NEUROLOGIC: Normal speech and normal tone; alert and oriented. PSYCHIATRIC: Normal affect, normal mood. SKIN: No ulceration. VITAL SIGNS: Temperature 97.7, pulse is 64, respirations 18, blood pressure 108/53, pulse ox 95. LABORATORY FINDINGS: CBC, WBC is 7.7, MCV is 97, hemoglobin is 14.9, platelets 193. Chemistry, sodium is 141, potassium is 3.9, anion gap is 8, creatinine is 0.7, calcium is 8.8. First set of troponins 0.017 and second set 0.017. Lipid panel within normal limits. TSH is 3.385, CK is 1.6, D-dimer is 1.38. IMAGING STUDIES: CT of the chest showed no central PE. There are some enlarged hilar lymph nodes, could be reactive in nature, needs followup CT. Small region of ground glass nodular opacity in the right middle lobe. ASSESSMENT AND PLAN: 1. Palpitations, chest, unclear etiology. EKG personally reviewed, no acute ST-T wave changes seen, possible differential of gastritis versus musculoskeletal versus ACS. PE ruled out. 2. Hyperlipidemia. 3. Anxiety. 4. Gastroesophageal reflux disease. PLAN: 1. She had 2 more sets of troponins today and lab work, so far unrevealing for any acute episodes and we will get a Cardiology consultation and do a stress test today. 2. Continue Protonix. 3. Home medication reconciled. 4. P.r.n. Xanax for anxiety. BREN WETZEL MD DR: FLORIAN/meghan JOB#: [id number] / [id number] ALEX
--- NOTE | 2016-12-28 15:14 | CARD ---
APPROVED REPORT EXAM: Two-dimensional and M-mode echocardiogram with Doppler and color Doppler. Other Information Quality : Average Rhythm : NSR INDICATION Chest Pain 2D DIMENSIONS RVDd2.3 (2.9-3.5cm)Left Atrium(2D)3.2 (1.6-4.0cm) IVSd0.9 (0.7-1.1cm)Aortic Root(2D)2.2 (2.0-3.7cm) LVDd4.3 (3.9-5.9cm)LVOT Diameter2.0 (1.8-2.4cm) PWd0.9 (0.7-1.1cm)LVDs2.4 (2.5-4.0cm) FS (%) 33.8 %SV63.4 ml LVEF(%)65.2 (>50%) Aortic Valve AoV Peak Nikolay.124.7cm/sAoV VTI29.1cm AO Peak GR.6.2mmHgLVOT Peak Nikolay.128.6cm/s LVOT VTI 29.55cmAO Mean GR.3mmHg BEN (VMAX)3.02jq1MSX (VTI)3.27cm2 Mitral Valve MV E Noymiegs29.2cm/sMV DECEL [id number] MV A Kxzocqaa86.0cm/sMV E Mean Gr.1mmHg MV DAU59zhV/A Ratio1.1 MV A Rkkqoyfh850iiMGN (PHT)3.94cm2 TDI E/Lateral E'5.7E/Medial E'8.4 Pulmonary Valve PV Peak Nnuhkwjn327.9cm/sPV Peak Grad.4mmHg RVOT VTI17.1cm Tricuspid Valve TR P. Hzixrhfq409fk/sRAP BJOUJZRM1rsBs TR Peak Gr.47yqJnWLWX84fiWj LEFT VENTRICLE The left ventricle is normal size. There is normal left ventricular wall thickness. Left ventricle sy stolic function is normal. The Ejection Fraction is 60-65%. There is normal LV segmental wall motion. The left ventricular diastolic function and filling is normal for age. There is no ventricular septa l defect visualized. RIGHT VENTRICLE The right ventricle is normal size. There is normal right ventricular wall thickness. The right ventr icular systolic function is normal. ATRIA The left atrium size is normal. The right atrium size is normal. The interatrial septum is intact wit h no evidence for an atrial septal defect or patent foramen ovale as noted on 2-D or Doppler imaging. AORTIC VALVE The aortic valve is mildly thickened. The aortic valve is trileaflet. Doppler and Color Flow revealed no significant aortic regurgitation. There is no significant aortic valvular stenosis. MITRAL VALVE The mitral valve leaflets are mildly thickened. There is no evidence of mitral valve prolapse. There is no mitral valve stenosis. Doppler and Color Flow revealed mild mitral regurgitation. TRICUSPID VALVE Doppler and Color Flow revealed mild tricuspid regurgitation. The pulmonary artery systolic pressure is estimated at 30 mmHg. PULMONIC VALVE Doppler and Color Flow revealed no pulmonic valvular regurgitation. There is no pulmonic valvular lashon nosis. GREAT VESSELS The aortic root is normal in size. The ascending aorta is normal in size. The pulmonary artery is nor mal. The IVC is normal in size and collapses >50% with inspiration. PERICARDIAL EFFUSION There is no evidence of significant pericardial effusion. Critical Notification Critical Value: No <Conclusion> The left ventricle is normal size. Left ventricle systolic function is normal. The Ejection Fraction is 60-65%. There is no significant aortic valvular stenosis. Doppler and Color Flow revealed no significant aortic regurgitation. Doppler and Color Flow revealed mild mitral regurgitation. Doppler and Color Flow revealed mild tricuspid regurgitation. The pulmonary artery systolic pressure is estimated at 30 mmHg.
[2016-12-28 15:30] VITALS: BP 110/55
--- NOTE | 2016-12-28 15:30 | RAD ---
APPROVED REPORT Test Type: Pharmacological Stress Nurse/Tech: Tanja Adamson R.N. Test Indications: Chest pain, palpitations. Cardiac History: None reported. None reported. Medications: SEE EMR Medical History: SEE EMR Resting ECG: SR Resting Heart Rate: 65 bpm Resting Blood Pressure: 121/56mmHg Pretest Chest Pain: None Nurse/Tech Notes S1S2, lungs CTA, denied chest pain, SOA and dizziness. Consent: The procedure was explained to the patient in lay terms. Informed consent was witnessed. Ahsan eout was entered into [employer]. History and Stress Test performed by Tanja Adamson R.N. Pharm. Details Pharmacologic stress testing was performed using 0.4mg per 5ml of regadenoson given intravenously ove r 7-10 seconds. Stress Symptoms Slughtly SOA, nauseous. POST EXERCISE Reason for Termination: Infusion complete Max HR: 109 bpm Max Blood Pressure: 128/58mmHg Blood Pressure response to exercise: Normal blood pressure response during stress. Heart Rate response to exercise: Normal Chest Pain: No. Arrhythmia: No. ST Change: No. INTERPRETATION Stress EKG Conclusion: The resting EKG shows a sinus rhythm. The stress EKG shows minimal nonspecific ST segment changes. No EKG evidence of stress-induced ischemia. Imaging Protocol IMAGE PROTOCOL: Rest Tc-99m/stress Tc-99m 1 day Rest: Stress: Viability: Radiopharm.Tc99m XhsprunaeHf88p Sestamibi Dose10.5mCi 31mCi Duration 15min. 10min. Img Date 12/28/2016 12/28/2016 Inj-Img Rstg44xbb. 60min. Rest Admin Site:IV - Left AntecubitalAdministrator:RT Veronika (R)(N) Stress Admin Site: IV - Left AntecubitalAdministrator: RT Veronika (R)(N) STRESS DATA End Diast. Vol.55.0mlAv. Heart Rate85.0bpm End Syst. Vol.1.0mlCO Index BSA4.6L/min Myocardial Znfa703.0gEject. Xcwttpxy64.0% Stress Rates Pk. Fill Rate3.09EDV/secLVtime Pk. Fill 202.36msec Pk. Empty Rate6.18ESV/secLVtime Pk. Jggqj242.14msec 1/3 Pk. Fill1.09EDV/sec Stress Scores Regional WT0.00Summed WT0.00 Regional WM0.00Summed WM0.00 LV Perfusion The stress scans showed no significant defects. The rest scans showed no significant defects. Nuclear imaging shows no reversible ischemia or infarct. Wall Motion Left ventricular systolic function is normal with an ejection fraction of greater than 70%. LV Perf. Quant 17 Seg. SSS0.00 17 Seg. SRS0.00 17 Seg. SDS0.00 Stress Defect Extent (% LAD)0.00Rest Defect Extent (% LAD)0.00Rev. Defect Extent (% LAD)0.00 Stress Defect Extent (% LCX) 0.00Rest Defect Extent (% LCX)0.00Rev. Defect Extent (% LCX)0.00 Stress Defect Extent (% RCA)0.00Rest Defect Extent (% RCA)0.00Rev. Defect Extent (% RCA)0.00 Stress Defect Extent (% MAYO)0.00Rest Defect Extent (% MAYO)0.00Rev. Defect Extent (% MAYO)0.00 Conclusion 1. No EKG evidence of stress-induced ischemia. 2. Nuclear imaging shows no reversible ischemia or infarct. 3. Good LV systolic function with an ejection fraction of greater than 70%. 4. Low risk Lexiscan nuclear stress test.
--- NOTE | 2017-01-03 09:48 | PDOC3 ---
Discharge Summary* Date of Discharge: Dec 28, 2016 Admitting Diagnosis Problems Medical Problems: (1) Chest pain Status: Acute (2) Palpitations Status: Acute Problems: Final Diagnosis Chest pain possible due to anxiety and GERD ANXIETY GERD OBESITY Brief Hospital Course Ms. Woods is a 61 old Female who presented with chest pain/ epigastric vera, 3 sets of troponins negative for ACS, her nuclear stress test is negative, Echo showed normal LVEF, CTA negative for PE. Mostly likely her symptoms could be due to her anxiety and GERD, Recommend to continue xanax and prtonix. Recommend to follow up with PCP for further work up. Disposition/Orders: D/C to Home Diet: Regular Scheduled Atorvastatin Calcium (Lipitor), 20 MG PO HS, (Reported) Carver-3S/Dha/Epa/Fish Oil/D3 (Fish Oil + D3 Softgel), 1 EACH PO DAILY, (Reported ) Ranitidine Hcl (Ranitidine Hcl), 150 MG PO PRN BID, (Reported) Scheduled PRN Hydrocodone Bit/Acetaminophen (Hydrocodone-Apap 5-325 ), 1-2 TAB PO PRN Q4HRS PRN for PAIN, (Reported) FOLLOW UP APPOINTMENT: with PCP Time Spent Total time spent with patient 33 minutes for coordination of care, counseling, and education. BREN WETZEL MD Jan 03, 2017 09:48
== END 2016-12-28 16:15 | disposition home or self-care (01) | DRG 392 ==
LOC: ER 22:37 → 2 SOUTH 12-28 00:26 → OBSVTOIN 12-28 00:35
PROVIDERS: ADMIT Internal Medicine Hematology & Oncology; ATTEND Internal Medicine Hematology & Oncology
DX: K21.9 Gastro-esophageal reflux disease without esophagitis (principal); F41.9 Anxiety disorder, unspecified; E78.00 Pure hypercholesterolemia, unspecified; E78.5 Hyperlipidemia, unspecified; K76.0 Fatty (change of) liver, not elsewhere classified
CPT/HCPCS: 36415; 71275; 78452; 80053; 80061; 82553; 83735; 83880; 84443; 84484; 85027; 85379; 93005; 93017; 93306; 96374; 96375; 96376; A9500; G0379; J2785; Q9967; 99285-25

== ENCOUNTER → 2017-09-08 | Outpatient (CLI) | payer SELFPAY | END | disposition home or self-care (01) | LOC: PMGWOUND 08:29 | DX: E11.621 Type 2 diabetes mellitus with foot ulcer (principal); L97.521 Non-pressure chronic ulcer of other part of left foot limited to breakdown of skin; E11.22 Type 2 diabetes mellitus with diabetic chronic kidney disease; I12.0 Hypertensive chronic kidney disease with stage 5 chronic kidney disease or end stage renal disease; N18.6 End stage renal disease; K21.9 Gastro-esophageal reflux disease without esophagitis; E11.319 Type 2 diabetes mellitus with unspecified diabetic retinopathy without macular edema; F17.210 Nicotine dependence, cigarettes, uncomplicated; F41.9 Anxiety disorder, unspecified; E78.00 Pure hypercholesterolemia, unspecified; Z99.2 Dependence on renal dialysis; Z89.422 Acquired absence of other left toe(s); Z89.431 Acquired absence of right foot | CPT/HCPCS: 99212 ==